=== PATIENT | male | born 1990 | race Caucasian/White ===

== ENCOUNTER 2017-05-12 19:59 | Emergency (ER) | payer OTHER ==
[~2017-05-12 19:59] MED LIST: IBUPROFEN PO; NO MEDICATIONS; NORCO1 TAB 10/3 PO; VOLTAREN75 MG PO
== END 2017-05-12 21:31 | disposition home or self-care (01) ==
LOC: SED 19:59
DX: M96.89 Other intraoperative and postprocedural complications and disorders of the musculoskeletal system (principal); F17.200 Nicotine dependence, unspecified, uncomplicated; Z98.890 Other specified postprocedural states; Z88.5 Allergy status to narcotic agent
CPT/HCPCS: 99283